=== PATIENT | female | born 1980 | race Caucasian/White ===

== ENCOUNTER 2017-01-09 23:55 | Emergency (ER) | payer SELFPAY ==
[~2017-01-09] VITALS: Ht 165.1 cm; Wt 120.0 kg
[2017-01-10] MEDS ORDERED: KETOROLAC 60MG/2ML VIAL IM ONE (03:15)
[2017-01-10 03:34] VITALS: BP 108/69
== END 2017-01-10 04:06 | disposition home or self-care (01) ==
LOC: ER 23:56
DX: K61.1 Rectal abscess (principal); Z98.890 Other specified postprocedural states; Z88.5 Allergy status to narcotic agent
CPT/HCPCS: 96372; 99283; J1885; Z7610